=== PATIENT | female | born 1995 | race Hispanic/Latino ===

== ENCOUNTER 2016-10-03 14:57 | Emergency (ER) | payer MEDICAID ==
[~2016-10-03] VITALS: Ht 165.1 cm; Wt 86.0 kg
[~2016-10-03 14:57] MED LIST: ACCUPRIL5 MG; FERROUS SULF325 M1 PO; IBUPROFEN600 MG PO; MOTRIN, CH20 MG/1 ML OR; NO MEDS; NO MORE TANG; PRENATAL; TRIAMCINOLON0.025 % EX; TYLENOL CH160 MG/5 M OR; ZOFRAN ODT8 MG SL; ZPAK PO
[2016-10-03 16:41] LABS: HEMATOCRIT 44.9 % (37.0-47.0); HEMOGLOBIN 15.2 g/dl (12.0-16.0); IMMATURE GRANULOCYTES 0.3 % (0.0-1.0); MEAN CELL VOLUME 88.2 fL CALC (80.0-100.0); MEAN CORPUSCULAR HGB 29.9 pG CALC (26.0-32.0); MEAN CORPUSCULAR HGB CONC 33.9 g/L CALC (32.0-36.0); NEUT# 5.16 thou/uL (2.00-7.15); RED BLOOD COUNT 5.09 mill/uL (4.20-5.60); RED CELL DISTRI WIDTH 11.9 % (11.5-15.5)
[2016-10-03 16:53] LABS: ALBUMIN 4.6 g/dL (3.2-5.0); ALKALINE PHOSPHATASE 76 u/l (38-126); AMYLASE 75 u/l (30-110); ANION GAP 14 (6-22 (CALC)); BILIRUBIN, TOTAL 0.7 mg/dL (0.0-1.4); BUN 4 mg/dL (7-17); BUN/CREATININE RATIO 8 (12-20 (CALC)); CALCIUM 9.6 mg/dL (8.4-10.2); CARBON DIOXIDE 24 mmol/l (22-30); CHLORIDE 104 mmol/l (95-108); CREATININE 0.6 mg/dL (0.5-1.0); GFR > 60 ML/MIN (>=60 (CALC)); GFR FOR AFR.AMER. > 60 ML/MIN (>=60 (CALC)); GLUCOSE 98 mg/dL (65-105); LIPASE 61 u/l (23-300); POTASSIUM 3.7 mmol/l (3.5-5.1); SGOT/AST 22 u/l (14-36); SGPT/ALT 29 u/l (9-52); SODIUM 138 mmol/l (137-146); TOTAL PROTEIN 8.4 g/dL (6.3-8.2)
[2016-10-03] MEDS ORDERED: ZOFRAN ODT4 MG PO (17:34)
[2016-10-03 17:37] LABS: URINE BILIRUBIN - DIPSTICK NEGATIVE (NEGATIVE); URINE BLOOD DIPSTICK NEGATIVE (NEGATIVE); URINE CLARITY CLEAR; URINE COLOR YELLOW; URINE GLUCOSE - DIPSTICK NEGATIVE (NEGATIVE); URINE KETONE NEGATIVE (NEGATIVE); URINE LEUK ESTERASE NEGATIVE (NEGATIVE); URINE NITRITE - DIPSTICK NEGATIVE (Negative); URINE PROTEIN - DIPSTICK NEGATIVE (NEG-TRACE); URINE SPECIFIC GRAVITY 1.015; URINE UROBILINOGEN - DIPSTICK 0.2 E.U./dL (0.2)
[2016-10-03 17:46] VITALS: BP 145/79
== END 2016-10-03 17:55 | disposition home or self-care (01) | DRG 781 ==
LOC: ED 14:57
PROVIDERS: Emergency Medicine
DX: O21.0 Mild hyperemesis gravidarum (principal); F41.9 Anxiety disorder, unspecified; O99.340 Other mental disorders complicating pregnancy, unspecified trimester; Z3A.00 Weeks of gestation of pregnancy not specified

== ENCOUNTER 2016-10-12 18:26 | Emergency (ER) | payer MEDICAID ==
[~2016-10-12] VITALS: Ht 165.1 cm; Wt 90.0 kg
[~2016-10-12 18:26] MED LIST changes: +ZOFRAN ODT4 MG PO
[2016-10-12] MEDS ORDERED: PHENERGAN25 M1 PR (18:45)
[2016-10-12 18:51] VITALS: BP 132/92
== END 2016-10-12 18:53 | disposition home or self-care (01) | DRG 781 ==
LOC: ED 18:26
DX: O26.891 Other specified pregnancy related conditions, first trimester (principal); R11.0 Nausea; Z3A.11 11 weeks gestation of pregnancy

== ENCOUNTER 2016-11-29 16:26 | Emergency (ER) | payer OTHER, MEDICAID ==
[~2016-11-29] VITALS: Ht 165.1 cm; Wt 90.0 kg
[~2016-11-29 16:26] MED LIST changes: +PHENERGAN25 M1 PR
[2016-11-29] MEDS ORDERED: ZOFRAN ODT4 MG PO (16:35)
[2016-11-29 17:04] LABS: URINE BILIRUBIN - DIPSTICK NEGATIVE (NEGATIVE); URINE BLOOD DIPSTICK NEGATIVE (NEGATIVE); URINE CLARITY CLEAR; URINE COLOR YELLOW; URINE GLUCOSE - DIPSTICK NEGATIVE (NEGATIVE); URINE KETONE NEGATIVE (NEGATIVE); URINE LEUK ESTERASE TRACE (NEGATIVE); URINE NITRITE - DIPSTICK NEGATIVE (Negative); URINE PROTEIN - DIPSTICK NEGATIVE (NEG-TRACE); URINE SPECIFIC GRAVITY 1.025; URINE UROBILINOGEN - DIPSTICK 0.2 E.U./dL (0.2)
[2016-11-29] MEDS ORDERED: AMOXICILLIN500 MG PO (18:10)
[2016-11-29 18:21] VITALS: BP 126/60
== END 2016-11-29 18:21 | disposition home or self-care (01) | DRG 781 ==
LOC: ED 16:26
PROVIDERS: Emergency Medicine
DX: O26.892 Other specified pregnancy related conditions, second trimester (principal); J02.9 Acute pharyngitis, unspecified; R10.30 Lower abdominal pain, unspecified; Z3A.16 16 weeks gestation of pregnancy; V59.49XA Driver of pick-up truck or van injured in collision with other motor vehicles in traffic accident, initial encounter; Y92.414 Local residential or business street as the place of occurrence of the external cause

== ENCOUNTER 2017-05-06 14:24 | Inpatient (IN) | payer MEDICAID ==
[~2017-05-06] VITALS: Ht 165.1 cm; Wt 95.3 kg
[~2017-05-06 14:24] MED LIST changes: +AMOXICILLIN500 MG PO
[2017-05-07] VITALS (10 sets, daily range): BP systolic 105–132; BP diastolic 39–66
--- NOTE | 2017-05-07 | NUR ---
Patient in room resting comfortably at this time.
--- NOTE | 2017-05-07 00:20 | NUR ---
, SCHEDULED REPEAT SECTION, 39 WEEKS, AMBULATORY TO UNIT. POC REVIEWED, EFM ON. REACTIVE NST OBTAINED. ABD CHIOMA DONE, PT INSTRUCTED TO NOTIFY RN WITH ANY NEEDS OR CONCERNS
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
--- NOTE | 2017-05-07 09:28 | NUR ---
ROUTINE PREOP MEDS GIVEN AT THIS TIME. Mary FABIAN CRNA AT BEDSIDE. LR BOLUS STARTED AT THIS TIME.
--- NOTE | 2017-05-07 09:50 | NUR ---
REPORT GIVEN TO Mary ADAMS RN TO ASSUME CARE OF PT.
--- NOTE | 2017-05-07 09:58 | NUR ---
patient in room with visitors to bedside. Patient denies no pain or distress. No contractions seen or palpated at this time. Will continue to monitor.
--- NOTE | 2017-05-07 10:39 | NUR ---
heart rate of 165, moderate variability noted, good accels noted. Patient off external monitor at this time. C SEction to follow and patient informed of such. Patient verbalizes understanding of such.
--- NOTE | 2017-05-07 11:08 | NUR ---
Patient resting comfortably in no distress at present moment. Will continue to monitor.
--- NOTE | 2017-05-07 12:48 | NUR ---
Patient resting in bed awaiting for caeserean section as information regarding insurance is being verified.
--- NOTE | 2017-05-07 13:00 | NUR ---
Patient in room in no distress. Patient concerned about timing of her casearean section. OB director Blanche Marquez RN notified [facility] office called and awaiting authorization. Patient informed on purpose of authorization and financial relation. Patient placed on external monitor. heart rate of 135, moderate variability, good accels noted, no decels noted.
--- NOTE | 2017-05-07 13:44 | NUR ---
Approval for caeaserean section informed to staff. OR team to unit as soon as possible. Bolus of Lactated Ringers infusing at present time.
--- NOTE | 2017-05-07 16:40 | NUR ---
Received care of pt. To room 209 via stretcher by Paul Del Rosario RN. Transferred to bed with no complaints. Denies pain at this time. SCD's applied. Vital signs obtained. Gege care done in bed, pt tolerated well. Scant lochia noted. Pt encouraged to cough and deep breathe. Clear fluids given. Ice water at bedside. Encouraged to notify nurse if pain increases. No increased somnolence or respiratory depression observed. Pt texting on cell phone. Pt with complaint of itching, instructed not to scratch vigorously. Benadryl given during . Assessment completed as charted. Call light within reach. Family at bedside.
--- NOTE | 2017-05-07 18:50 | NUR ---
REPORT GIVEN TO ONCOMING SHIFT. FAMILY AT BEDSIDE. CALL LIGHT WITHIN REACH. PT EATING SOLID FOOD BROUGHT BY FAMILY. PT ENCOURAGED TO STAY ON FULL LIQUIDS BEFORE ADVANCING TO SOLIDS. PT STATES SHE IS HUNGRY AND HAS TO EAT REGULAR FOOD. PT DENIES NAUSEA AT THIS TIME. CALL LIGHT WITHIN REACH.
--- NOTE | 2017-05-07 19:00 | NUR ---
REPORT ON PT. RECEIVED FROM Paul BRANDT RN. PT. REVEIVED IN STABLE CONDITION IN BED. IV LR WITH PITOCIN INFUSING. ABDOMINAL DRESSING DRY AND INTACT. LOCHIA SCANT AND SCD EQUIPMENT IN USE. PT. C/O PAIN AT INCISION SITE. PT. REQUESTING PAIN MEDICATION.
--- NOTE | 2017-05-07 22:20 | NUR ---
CISSE TO BEDSIDE DRAINAGE , DRAINING CLEAR URINE. NO C/O DISCOMFORT.
[2017-05-08 00:02] VITALS: BP 115/58
[2017-05-08 04:00] VITALS: BP 123/47
[2017-05-08 06:11] LABS: HEMATOCRIT 31.9 % (37.0-47.0); HEMOGLOBIN 11.2 g/dl (12.0-16.0); IMMATURE GRANULOCYTES 0.5 % (0.0-1.0); MEAN CELL VOLUME 87.9 fL CALC (80.0-100.0); MEAN CORPUSCULAR HGB 30.9 pG CALC (26.0-32.0); MEAN CORPUSCULAR HGB CONC 35.1 g/L CALC (32.0-36.0); NEUT# 9.13 thou/uL (2.00-7.15); RED BLOOD COUNT 3.63 mill/uL (4.20-5.60); RED CELL DISTRI WIDTH 12.7 % (11.5-15.5)
--- NOTE | 2017-05-08 06:18 | NUR ---
PT. SLEPT ON AND OFF THROUGH THE NIGHT. BONDED WELL WITH AND KEPT FOR MOST OF THE NIGHT. PT WAS ASSISTED OOB TO BR AFTER CISSE CATH. WAS D.C and SCD WAS ALSO D/C. PT TOLERATED BEING OOB. NO DIZZINESS NOTED. PERICARE WAS DEMONSTRATED AND PT. RETURNED DEMO SATISFACTORILY.PT.SHE HAS SINCE, VOIDED WITHOUT DIFFICULTY AND AMBULATING WELL. ABDOMINAL DRESSING IS STILL IN PLACE AND INTACT WITH NO DRAINAGE FROM INCISION SITE.PT. HAS TOLERATED REGULAR DIET.
--- NOTE | 2017-05-08 07:31 | NUR ---
AMBULATING IN ROOM WITHOUT DIFFICULTY. ADMITS TO MILD PAIN TO INCISION WITH SAME. NO OTHER CONCERNS. IV SALINE LOCKED. AMBULATION TOLERATED ENCOURAGED. ALSO ENCOURAGED TO CONTINUE USING INCENTIVE SPIROMETER. PATIENT VERBALISE UNDERSTANDING. PLAN OF CARE AND SCHEDULING/OPTIONS OF PAIN MEDICATION DISCUSSED.
--- NOTE | 2017-05-08 14:57 | NUR ---
IN ROOM WITH FAMILY. IV ACCESS REMOVED. PATIENT TOOK SHOWER. REMOVED DRESSING. STERISTRIPS INTACT. NO DRAINAGE FROM INCISION. AMBULATION ENCOURAGED. CONTINUES TO DENY THE NEED FOR PAIN MEDICATION.
--- NOTE | 2017-05-08 16:37 | NUR ---
MEDICATED FOR PAIN. NO OTHER CONCERNS AT THIS TIME.
[2017-05-08 16:41] VITALS: BP 110/66
--- NOTE | 2017-05-08 18:44 | NUR ---
in room with . end of shift report given to melva fofana.
--- NOTE | 2017-05-08 19:00 | NUR ---
REPORT RECEIVED FROM TRENT ALDRIDGE.PT. SITTING UP IN BED CRADELING HER BABY.NO DISCOMFORT AT THIS TIME.
[2017-05-08 19:30] VITALS: BP 114/68
--- NOTE | 2017-05-09 05:15 | NUR ---
PT. C/O ABDOMINAL CRAMPING AND SORENESS. rEQUEST PAIN MED. INCISION SITE CLEAN AND DRY, STERI STRIPS IN PLACE. NO SIGN OF LOCAL IRRITATION. PT. MEDICATED WITH MOTRIN 600MG PO. BONDING WITH INFANT IN BED.
[2017-05-09 05:48] VITALS: BP 106/47
--- NOTE | 2017-05-09 07:38 | NUR ---
ASSESSMENT DONE CHARTED. REFUSING TDAP VACCINE. NO OTHER CONCERNS AT THIS TIME. DICAHRGE ORDERS RECEIVED.
--- NOTE | 2017-05-09 09:04 | NUR ---
see nurses note on infants chart.
[2017-05-09] MEDS ORDERED: IBUPROFEN600 MG PO (09:32)
[2017-05-09] MEDS ORDERED: LORTAB 7.57.5 MG PO (09:32)
--- NOTE | 2017-05-09 11:55 | NUR ---
in room with visitors. no concerns at this time. lunch tray given.
--- NOTE | 2017-05-09 14:30 | NUR ---
Discharge instructions given. Patient verbalizes understanding of same. Discharged in stable condition via Wheelchair to Home with family. All belongings sent with pt.
== END 2017-05-09 14:30 | disposition home or self-care (01) | DRG 766 ==
LOC: OB 05-07 00:20
PROVIDERS: ADMIT Obstetrics & Gynecology; ATTEND Obstetrics & Gynecology
PROC: 10D00Z1 Extraction of Products of Conception, Low, Open Approach (ICD-10-PCS; principal; 2017-05-07)
DX: O34.211 Maternal care for low transverse scar from previous cesarean delivery (principal); N85.8 Other specified noninflammatory disorders of uterus; Z3A.39 39 weeks gestation of pregnancy; Z37.0 Single live birth
CPT/HCPCS: J2270

== ENCOUNTER 2017-06-23 12:09 | Emergency (ER) | payer MEDICAID ==
[~2017-06-23] VITALS: Ht 165.1 cm; Wt 89.0 kg
[~2017-06-23 12:09] MED LIST changes: +LORTAB 7.57.5 MG PO
[2017-06-23 12:51] VITALS: BP 128/75
[2017-06-23] MEDS ORDERED: CEPHALEXIN500 MG PO (12:56)
== END 2017-06-23 13:07 | disposition home or self-care (01) | DRG 776 ==
LOC: ED 12:09
DX: O86.0 Infection of obstetric surgical wound (principal); B95.7 Other staphylococcus as the cause of diseases classified elsewhere

== ENCOUNTER 2018-11-08 05:05 | Emergency (ER) | payer MEDICAID ==
[~2018-11-08] VITALS: Ht 165.1 cm; Wt 93.0 kg
[~2018-11-08 05:05] MED LIST changes: +CEPHALEXIN500 MG PO
[2018-11-08] MEDS ORDERED: PERCOCET 5/325M1 TAB PO (05:50)
[2018-11-08] MEDS ORDERED: AMOXICILLIN500 MG PO (05:50)
[2018-11-08 06:00] VITALS: BP 137/81
== END 2018-11-08 06:00 | disposition home or self-care (01) ==
LOC: ED 05:05
DX: K08.89 Other specified disorders of teeth and supporting structures (principal)

== ENCOUNTER 2019-05-24 13:22 | Emergency (ER) | payer MEDICAID ==
[~2019-05-24] VITALS: Ht 165.1 cm; Wt 98.0 kg
[~2019-05-24 13:22] MED LIST changes: +PERCOCET 5/325M1 TAB PO
[2019-05-24 16:52] VITALS: BP 126/73
== END 2019-05-24 17:24 | disposition home or self-care (01) ==
LOC: ED 13:22
DX: J06.9 Acute upper respiratory infection, unspecified (principal)

== ENCOUNTER 2019-07-28 17:35 | Emergency (ER) | payer OTHER ==
[2019-07-28] MEDS ORDERED: MULTI VITAMIN1 TAB PO (17:47)
[2019-07-28 19:09] VITALS: BP 134/83
== END 2019-07-28 19:14 | disposition home or self-care (01) ==
LOC: ED 17:35
DX: O26.899 Other specified pregnancy related conditions, unspecified trimester (principal); R51 Headache; Z3A.00 Weeks of gestation of pregnancy not specified

== ENCOUNTER 2020-04-07 20:09 | Emergency (ER) | payer OTHER ==
[~2020-04-07] VITALS: Ht 165.1 cm; Wt 90.9 kg
[~2020-04-07 20:09] MED LIST changes: +MULTI VITAMIN1 TAB PO
[2020-04-07] MEDS ORDERED: KEFLEX500 M1 PO (20:40)
[2020-04-07 20:59] VITALS: BP 132/77
== END 2020-04-07 21:01 | disposition home or self-care (01) ==
LOC: ED 20:09
DX: L02.415 Cutaneous abscess of right lower limb (principal)

== ENCOUNTER 2020-05-11 19:38 | Emergency (ER) | payer OTHER ==
[~2020-05-11] VITALS: Ht 165.1 cm; Wt 90.9 kg
[~2020-05-11 19:38] MED LIST changes: +KEFLEX500 M1 PO
[2020-05-11] MEDS ORDERED: MUPIROCIN2 % EX (20:04)
[2020-05-11 20:25] VITALS: BP 124/74
== END 2020-05-11 20:25 | disposition home or self-care (01) ==
LOC: ED 19:38
DX: L72.0 Epidermal cyst (principal)

== ENCOUNTER 2020-08-05 13:24 | Emergency (ER) | payer OTHER ==
[~2020-08-05] VITALS: Ht 165.1 cm; Wt 86.2 kg
[~2020-08-05 13:24] MED LIST changes: +MUPIROCIN2 % EX
[2020-08-05 14:33] LABS: URINE COLOR ORANGE
[2020-08-05 14:44] LABS: URINE EPITHELIAL CELLS RARE EPI/hpf (0-FEW); URINE RBC 0-2 RBC/hpf (0-5); URINE WBC 0-2 WBC/hpf (0-5)
[2020-08-05] MEDS ORDERED: KEFLEX500 M1 PO (15:10)
[2020-08-05] MEDS ORDERED: PYRIDIUM200 MG PO (15:10)
[2020-08-05 15:21] VITALS: BP 128/74
== END 2020-08-05 15:38 | disposition home or self-care (01) ==
LOC: ED 13:24
DX: N39.0 Urinary tract infection, site not specified (principal)

== ENCOUNTER 2020-09-14 17:01 | Emergency (ER) | payer OTHER ==
[~2020-09-14] VITALS: Ht 165.1 cm; Wt 84.0 kg
[~2020-09-14 17:01] MED LIST changes: +PYRIDIUM200 MG PO
[2020-09-14 17:26] LABS: URINE BLOOD DIPSTICK NEGATIVE (NEGATIVE); URINE COLOR YELLOW; URINE GLUCOSE - DIPSTICK NEGATIVE (NEGATIVE); URINE KETONE NEGATIVE (NEGATIVE); URINE LEUK ESTERASE NEGATIVE (NEGATIVE); URINE PROTEIN - DIPSTICK NEGATIVE (NEG-TRACE); URINE SPECIFIC GRAVITY >=1.030; URINE UROBILINOGEN - DIPSTICK 0.2 E.U./dL (0.2)
[2020-09-14 17:27] LABS: URINE BILIRUBIN - DIPSTICK NEGATIVE (NEGATIVE); URINE NITRITE - DIPSTICK NEGATIVE (Negative)
[2020-09-14 17:54] LABS: IMMATURE GRANULOCYTES 0.1 % (0.0-5.0); MEAN CELL VOLUME 88.8 fL CALC (80.0-100.0); MEAN CORPUSCULAR HGB 29.2 pG CALC (26.0-32.0); MEAN CORPUSCULAR HGB CONC 32.8 g/dL CAL (32.0-36.0); NEUT# 5.06 thou/uL (2.00-7.15); RED BLOOD COUNT 4.63 mill/uL (4.20-5.60); RED CELL DISTRI WIDTH 12.7 % (11.5-15.5)
[2020-09-14 17:56] LABS: HEMATOCRIT 41.1 % (37.0-47.0); HEMOGLOBIN 13.5 g/dl (12.0-16.0)
[2020-09-14 18:05] LABS: ALBUMIN 4.9 g/dL (3.2-5.0); ALKALINE PHOSPHATASE 61 u/l (38-126); ANION GAP 12 (6-22 (CALC)); BILIRUBIN, TOTAL 0.8 mg/dL (0.0-1.4); BUN 10 mg/dL (7-17); BUN/CREATININE RATIO 15 (12-20 (CALC)); CARBON DIOXIDE 27 mmol/l (22-30); CHLORIDE 105 mmol/l (95-108); CREATININE 0.7 mg/dL (0.5-1.0); GFR > 60 ML/MIN (>=60 (CALC)); GFR FOR AFR.AMER. > 60 ML/MIN (>=60 (CALC)); LIPASE 101 u/l (23-300); POTASSIUM 3.2 mmol/l (3.5-5.1); SGOT/AST 23 u/l (14-36); SODIUM 140 mmol/l (137-146); TOTAL PROTEIN 8.4 g/dL (6.3-8.2)
[2020-09-14] MEDS ORDERED: MOTRIN800 MG PO (18:29)
[2020-09-14] MEDS ORDERED: MIRALAX17 GM/SCOO PO (18:29)
[2020-09-14] MEDS ORDERED: ZOFRAN4 MG/TAB PO (18:29)
[2020-09-14 18:39] VITALS: BP 118/70
== END 2020-09-14 18:49 | disposition home or self-care (01) ==
LOC: ED 17:01
DX: M54.5 Low back pain (principal); K59.00 Constipation, unspecified

== ENCOUNTER 2020-12-23 17:00 | Emergency (ER) | payer OTHER ==
[~2020-12-23] VITALS: Ht 165.1 cm; Wt 77.0 kg
[~2020-12-23 17:00] MED LIST changes: +MIRALAX17 GM/SCOO PO; +MOTRIN800 MG PO; +ZOFRAN4 MG/TAB PO
[2020-12-23] MEDS ORDERED: HYDROXYZINE HYD10 MG PO (17:11)
[2020-12-23 17:42] LABS: URINE BILIRUBIN - DIPSTICK NEGATIVE (NEGATIVE); URINE BLOOD DIPSTICK NEGATIVE (NEGATIVE); URINE COLOR YELLOW; URINE GLUCOSE - DIPSTICK NEGATIVE (NEGATIVE); URINE KETONE TRACE mg/dL (NEGATIVE); URINE LEUK ESTERASE NEGATIVE (NEGATIVE); URINE PROTEIN - DIPSTICK NEGATIVE (NEG-TRACE); URINE UROBILINOGEN - DIPSTICK 0.2 E.U./dL (0.2)
[2020-12-23 17:44] LABS: URINE NITRITE - DIPSTICK NEGATIVE (Negative)
[2020-12-23 17:44] LABS: HEMATOCRIT 40.4 % (37.0-47.0); HEMOGLOBIN 13.4 g/dl (12.0-16.0); IMMATURE GRANULOCYTES 0.2 % (0.0-5.0); MEAN CORPUSCULAR HGB 29.5 pG CALC (26.0-32.0); MEAN CORPUSCULAR HGB CONC 33.2 g/dL CAL (32.0-36.0); NEUT# 8.84 thou/uL (2.00-7.15); RED BLOOD COUNT 4.54 mill/uL (4.20-5.60); RED CELL DISTRI WIDTH 12.7 % (11.5-15.5)
[2020-12-23 17:55] LABS: ALBUMIN 4.2 g/dL (3.2-5.0); ALKALINE PHOSPHATASE 65 u/l (38-126); AMYLASE 68 u/l (30-110); ANION GAP 12 (6-22 (CALC)); BILIRUBIN, TOTAL 0.7 mg/dL (0.0-1.4); BUN 6 mg/dL (7-17); BUN/CREATININE RATIO 8 (12-20 (CALC)); CARBON DIOXIDE 25 mmol/l (22-30); CHLORIDE 106 mmol/l (95-108); CREATININE 0.7 mg/dL (0.5-1.0); GFR > 60 ML/MIN (>=60 (CALC)); GFR FOR AFR.AMER. > 60 ML/MIN (>=60 (CALC)); LIPASE 123 u/l (23-300); POTASSIUM 3.5 mmol/l (3.5-5.1); SGOT/AST 18 u/l (14-36); SODIUM 140 mmol/l (137-146); TOTAL PROTEIN 7.3 g/dL (6.3-8.2)
[2020-12-23 18:19] VITALS: BP 123/71
== END 2020-12-23 18:31 | disposition home or self-care (01) ==
LOC: ED 17:00
DX: B34.9 Viral infection, unspecified (principal); Z20.822 Contact with and (suspected) exposure to COVID-19

== ENCOUNTER 2022-12-23 20:09 | Emergency (ER) | payer OTHER ==
[~2022-12-23] VITALS: Ht 165.1 cm; Wt 68.2 kg
[~2022-12-23 20:09] MED LIST changes: +HYDROXYZINE HYD10 MG PO
[2022-12-23 20:44] VITALS: BP 111/61
[2022-12-23 21:39] LABS: BASO% 0.3 % (0-3); EOS% 1.7 % (0-8); HEMATOCRIT 41.1 % (37.0-47.0); HEMOGLOBIN 13.5 g/dl (12.0-16.0); IMMATURE GRANULOCYTES 0.3 % (0.0-5.0); LYMPH% 23.3 % (15-41); MEAN CELL VOLUME 90.1 fL CALC (80.0-100.0); MEAN CORPUSCULAR HGB 29.6 pG CALC (26.0-32.0); MEAN CORPUSCULAR HGB CONC 32.8 g/dL CAL (32.0-36.0); MONO% 5.8 % (2-13); NEUT# 4.89 thou/uL (2.00-7.15); NEUT% 68.6 % (42-76); RED BLOOD COUNT 4.56 mill/uL (4.20-5.60); RED CELL DISTRI WIDTH 12.3 % (11.5-15.5)
[2022-12-23 21:52] LABS: ALBUMIN 4.4 g/dL (3.2-5.0); ALKALINE PHOSPHATASE 57 u/l (38-126); ANION GAP 12 (6-22 (CALC)); BILIRUBIN, TOTAL 0.8 mg/dL (0.02-1.3); BUN 10 mg/dL (7-17); BUN/CREATININE RATIO 14 (12-20 (CALC)); CARBON DIOXIDE 25 mmol/l (22-30); CHLORIDE 108 mmol/l (95-108); CREATININE 0.7 mg/dL (0.5-1.0); GFR FOR AFR.AMER. > 60 ML/MIN (>=60 (CALC)); GFR OTHER RACES > 60 ML/MIN (>=60 (CALC)); POTASSIUM 3.6 mmol/l (3.5-5.1); SGOT/AST 21 u/l (14-36); SODIUM 141 mmol/l (137-146); TOTAL PROTEIN 7.6 g/dL (6.3-8.2)
[2022-12-23] MEDS ORDERED: PROVERA10 MG PO (22:23)
[2022-12-23 23:05] VITALS: BP 111/61
== END 2022-12-23 23:05 | disposition home or self-care (01) ==
LOC: ED 20:09
PROVIDERS: Family Medicine
DX: N93.8 Other specified abnormal uterine and vaginal bleeding (principal)

== ENCOUNTER 2024-07-29 12:33 | Emergency (ER) | payer SELFPAY ==
[~2024-07-29] VITALS: Ht 165.1 cm; Wt 71.0 kg
[~2024-07-29 12:33] MED LIST changes: +AMOXICILLIN875 MG PO; +FLOXIN OTIC0.3 % AS; +GENTAMICIN0.3 % OD; +PROVERA10 MG PO; +ZYRTEC10 MG PO
[2024-07-29] MEDS ORDERED: KETOROLAC TROMETHAMINE 30 MG/ML SDV IV ONE (12:55)
[2024-07-29] MEDS ORDERED: SODIUM CHLORIDE 0.9% 1,000 ML IV ONE (12:55)
[2024-07-29] MEDS ORDERED: ONDANSETRON HCl 4 MG/2 ML SDV IV ONE (12:55)
[2024-07-29 13:06] VITALS: BP 126/75
[2024-07-29] MEDS ORDERED: CARBAMIDE PEROXIDE 6.5 % BTL AS ONE (13:10)
[2024-07-29 13:15] VITALS: BP 106/69
[2024-07-29 13:31] VITALS: BP 100/65
[2024-07-29 13:45] VITALS: BP 82/42
[2024-07-29] MEDS ORDERED: ALLERGY RE50 MCG/ACT (13:58)
[2024-07-29 14:05] VITALS: BP 82/42
== END 2024-07-29 14:05 | disposition home or self-care (01) | DRG 156 ==
LOC: ED 12:33
PROC: 3E1B78Z Irrigation of Ear using Irrigating Substance, Via Natural or Artificial Opening (ICD-10-PCS; principal; 2024-07-29)
DX: H61.22 Impacted cerumen, left ear (principal); J32.9 Chronic sinusitis, unspecified